=== PATIENT | male | born 1945 | race Caucasian/White ===

== ENCOUNTER 2019-12-06 09:02 | Inpatient (IN) | payer OTHER ==
[~2019-12-06] VITALS: Ht 157.5 cm; Wt 61.2 kg
--- NOTE | 2019-12-06 09:29 | NUR ---
senior information security architect at bedside wanding the pt.
[2019-12-06 09:31] LABS: BASOPHILS % (AUTO) 1.1 % (0.0-2.0); EOSINOPHILS # (AUTO) 0.1 K/uL (0.0-0.7); EOSINOPHILS % (AUTO) 2.1 % (0.0-7.0); HEMATOCRIT 42.6 % (36.7-47.1); HEMOGLOBIN 14.4 g/dL (12.5-16.3); LYMPHOCYTES # (AUTO) 0.9 K/uL (20.0-40.0); LYMPHOCYTES % (AUTO) 22.4 % (20.5-51.5); MEAN CORPUSCULAR HEMOGLOBIN 35.1 uug (23.8-33.4); MEAN CORPUSCULAR HGB CONC 34 g/dL (32.5-36.3); MEAN CORPUSCULAR VOLUME 104.1 fL (73.0-96.2); MONOCYTES # (AUTO) 0.5 K/uL (2.0-10.0); MONOCYTES % (AUTO) 14.3 % (0.0-11.0); NEUTROPHILS # (AUTO) 2.3 K/uL (1.8-8.9); NEUTROPHILS % (AUTO) 60.1 % (38.5-71.5); PLATELET COUNT (AUTO) 174 K/uL (152-348); RED BLOOD CELL COUNT(AUTO) 4.09 MIL/uL (4.06-5.63); WHITE BLOOD COUNT (AUTO) 3.9 K/uL (3.6-10.2)
[2019-12-06 09:37] LABS: CARBON DIOXIDE 27 mmol/L (21-32); CHLORIDE 112 mmol/L (98-107); CREATININE 0.8 mg/dL (0.6-1.3); GLUCOSE 78 mg/dL (74-106); POTASSIUM 3.8 mmol/L (3.5-5.1); UREA NITROGEN, BLOOD 5 mg/dL (7-18)
[2019-12-06 09:43] LABS: ALANINE AMINOTRANSFERASE 40 U/L (16-63); ALKALINE PHOSPHATASE 55 U/L (50-136); ASPARTATE AMINOTRANSFERASE 80 U/L (15-37); BILIRUBIN,DIRECT < 0.1 mg/dL (0.0-0.2); BILIRUBIN,TOTAL 0.4 mg/dL (0.2-1.0); TOTAL PROTEIN, SERUM 6.7 g/dL (6.4-8.2)
[2019-12-06 09:44] LABS: ACETAMINOPHEN < 2.0 ug/mL (10-30)
[2019-12-06 09:49] LABS: ETHANOL 90 MG/DL (0-0)
--- NOTE | 2019-12-06 10:34 | NUR ---
TRANSFERED PT TO MHU IN STABLE CONDITION.
[2019-12-06 11:04] VITALS: BP 168/92
[2019-12-06] MEDS ORDERED: MAGNESIUM HYDROXIDE 30 ML LIQUID UDC PO PRN (12:00)
[2019-12-06] MEDS ORDERED: BLOOD SUGAR DIAGNOSTIC 1 EACH STRIP VI ONE (12:00)
[2019-12-06] MEDS ORDERED: CLONAZEPAM 0.5 MG TABLET PO PRN (12:00)
[2019-12-06] MEDS ORDERED: MAG HYDROX/AL HYDROX/SIMETH 30 ML LIQUID UDC PO PRN (12:00)
[2019-12-06] MEDS ORDERED: ACETAMINOPHEN 325 MG TABLET PO PRN (12:00)
[2019-12-06 15:20] VITALS: BP 158/87
--- NOTE | 2019-12-06 16:53 | NUR ---
Admission Note: Patient admitted on a 5150 hold for GD to MHU Room 145B from the ER accompanied by RN amy marte. Patient belongings inventoried and placed in contraband locker. Valuables inventoried and placed in unit safe. Patient given patient's rights booklet upon admission. Patient given 5150 advisement upon admission and educated about 5150 hold. Patient skin assessment done by RN, skin intact. Upon face to face evaluation, patient is uncooperative with admission process and refusing to participate in nursing assessment. Patient is angry, agitated, and irritable. Patient is preoccupied with bilateral lower extremity pain, due to reports of sciatica. Patient refusing to disclose information about his psychiatric or medical history. Patient admitted with BAL 0.09 on admission. Refusing to participate with alcohol or substance abuse screening questionnaire. Patient escorted to his assigned room and oriented to his room, surroundings, and safety. Educated about impulse control and communicating needs to staff.
[2019-12-06] MEDS ORDERED: GABAPENTIN 300 MG CAPSULE PO SCH (17:30)
--- NOTE | 2019-12-06 18:44 | NUR ---
Patient refusing PO psychotropic medication ordered by psychiatrist. Patient educated about importance of education about medication adherence, benefits of taking medication, but teaching is ineffective at this time. Patient is guarded, withdrawn, and isolative to his assigned bed.
[2019-12-06 20:00] VITALS: BP 154/76
[2019-12-06] MEDS: LORAZEPAM 1 MG TABLET PO PRN (20:24)
--- NOTE | 2019-12-06 22:00 | NUR ---
received to care, lying in bed, pleasant, but guarded, upon approach. PRN ativan was given at 2023, for stated anxiety, and "nervousness". as of 2199, he appears to be asleep. no distress noted. will continue to monitor closely.
--- NOTE | 2019-12-07 05:15 | NUR ---
slept 8 hours. continues to sleep. no distress noted.
[2019-12-07 08:00] VITALS: BP 108/56
[2019-12-07 09:08] LABS: CREATININE 0.6 mg/dL (0.6-1.3); POTASSIUM 3.5 mmol/L (3.5-5.1); TOTAL PROTEIN, SERUM 6.4 g/dL (6.4-8.2)
[2019-12-07 09:10] LABS: ETHANOL < 3 MG/DL (0-0)
[2019-12-07] MEDS: FOLIC ACID 1 MG TABLET PO SCH (09:45)
[2019-12-07] MEDS: THIAMINE HCL 100 MG TABLET PO SCH (09:46)
[2019-12-07] MEDS: MULTIVITAMINS,THERAPEUTIC TABLET PO SCH (09:46)
[2019-12-07] MEDS: CYCLOBENZAPRINE HCL 10 MG TABLET PO PRN (09:46)
[2019-12-07] MEDS: GABAPENTIN 100 MG CAPSULE PO SCH ×3 (09:57→17:19)
--- NOTE | 2019-12-07 12:57 | NUR ---
Social Work Note: clearing tub worker contacted patient's Independent Living and spoke to the automobile sales representative Steve Castro who stated that patient is not accepted back and that he already has another reside who took his bed. This check writer salesperson informed that he would have to have a placement for patient and should have gave patient an eviction notice. This check writer salesperson educated Steve about the [address]. Per Steve, he stated that another independent living would accept patient. Steve, stated to contat Anne ([phone]) to arrange the placement for patient. This check writer salesperson contacted Anne ([phone]) and per Anne she stated that patient is accepted upon discharge.
[2019-12-07] MEDS: LORAZEPAM 1 MG TABLET PO PRN (13:07)
--- NOTE | 2019-12-07 14:02 | NUR ---
Social Work Family Contact: Patient does not have any supportive family members or any friends.
--- NOTE | 2019-12-07 14:02 | NUR ---
Social Work Initial Discharge Plan Note: Patient currently resides at an Independent Living [address] [place] [address] ([phone]). Patient will not be able to return to facility and will be discharged to a new Independent Facility [facility] [address] [facility] [address]. SW will continue to work with patient and MD to ensure a safe and proper discharge plan.
--- NOTE | 2019-12-07 15:54 | NUR ---
Social Work Firearms Report (DOJ): Tax Compliance Representative completed and submitted a DPJ firearms report for 5150 danger to others and grave disability certification. A copy of report has been placed in patient chart.
[2019-12-07 16:00] VITALS: BP 130/73
[2019-12-07 20:00] VITALS: BP 119/60
[2019-12-07] MEDS: TRAMADOL HCL 50 MG TABLET PO PRN (20:22)
--- NOTE | 2019-12-07 21:00 | NUR ---
received to care, lying in bed. denies any sx of alcohol withdrawal. pt remains disheveled, needing a shower, which was offered. he refused, but agreed to possibly take one in the morning.
[2019-12-07] MEDS: TEMAZEPAM 7.5 MG CAPSULE PO PRN (21:59)
--- NOTE | 2019-12-07 22:00 | NUR ---
received to care, lying in bed, pleasant, upon approach. PRN tramadol was given around 1999, for sciatic pain. as of 2199, he appears to be asleep. no distress noted. will continue to monitor closely.
--- NOTE | 2019-12-07 22:59 | NUR ---
PRN restoril was given for insomnia
--- NOTE | 2019-12-07 23:30 | NUR ---
appears to be asleep. no distress noted.
--- NOTE | 2019-12-08 06:00 | NUR ---
slept 7.75 hours. continues to sleep. no distress noted.
[2019-12-08 07:30] VITALS: BP 100/59
[2019-12-08] MEDS: TRAMADOL HCL 50 MG TABLET PO PRN (08:48)
[2019-12-08] MEDS: THIAMINE HCL 100 MG TABLET PO SCH (08:49)
[2019-12-08] MEDS: MULTIVITAMINS,THERAPEUTIC TABLET PO SCH (08:49)
[2019-12-08] MEDS: FOLIC ACID 1 MG TABLET PO SCH (08:49)
[2019-12-08] MEDS: GABAPENTIN 100 MG CAPSULE PO SCH ×3 (08:49→18:16)
--- NOTE | 2019-12-08 09:53 | NUR ---
Social Work Brief Substance Abuse Intervention: Patient was provided with a brief substance abuse intervention and referred to [facility] Substance Abuse Self-helpline ([facility]) ([phone]), [facility] , [facility] , and [facility] .
--- NOTE | 2019-12-08 12:52 | NUR ---
Social Work Discharge Planning: Homicide Detective faxed patient's referral packet including: History and Physical, Consultation, Progress Notes, Medication List and Labs to [facility] for placement attention to Anne [address] [facility] [address].
--- NOTE | 2019-12-08 13:37 | NUR ---
Social Work UR Note: JD faxed patient's clinicals including History and Physical, Consultation, Progress Notes, Medication List and Labs to Alexia oil field caser from [facility] (ph:[phone] ). Authorization # [id number]
[2019-12-08 16:00] VITALS: BP 104/61
[2019-12-08 20:00] VITALS: BP 110/65
--- NOTE | 2019-12-08 20:05 | NUR ---
Received patient in his room, stays most of his time in his room, patient finally decided to take a shower. no behavioral issue.
[2019-12-08] MEDS: TEMAZEPAM 7.5 MG CAPSULE PO PRN (21:11)
[2019-12-09 07:30] VITALS: BP_SYST 116; BP_SYST 141; BP_DIAS 59; BP_DIAS 87
[2019-12-09] MEDS: GABAPENTIN 100 MG CAPSULE PO SCH ×3 (08:30→16:21)
[2019-12-09] MEDS: MULTIVITAMINS,THERAPEUTIC TABLET PO SCH (08:30)
[2019-12-09] MEDS: FOLIC ACID 1 MG TABLET PO SCH (08:30)
[2019-12-09] MEDS: THIAMINE HCL 100 MG TABLET PO SCH (08:30)
--- NOTE | 2019-12-09 09:02 | NUR ---
Received patient awake, alert and oriented in his assigned bed. Bed is in low and locked position. Patient is guarded, withdrawn, and isolative to his assigned room. He has minimal interaction with others, but is cooperative and redirectable. Patient is irritable but is able to be redirected. Patient denies SI/HI, denies AH/VH. Patient is medication adherent, no adverse reaction noted. Patient is able to perform self care and ADL's independently. Able to tolerate food and fluids. Patient denies nausea, vomiting, tremors, or headache. Vital signs are stable. Patient is able to ambulate independently. He is able to communicate his needs to staff. Educated about impulse control and able to verbalize understanding.
[2019-12-09] MEDS: TRAMADOL HCL 50 MG TABLET PO PRN ×3 (12:01→23:34)
[2019-12-09 16:00] VITALS: BP 120/77
--- NOTE | 2019-12-09 17:45 | NUR ---
Patient transferred to room 308. report given to IMELDA Alves. Patient transferred in stable condition. Patient is calm, cooperative, and redirectable.
--- NOTE | 2019-12-09 18:10 | NUR ---
Received patient from MHU via Dori chair, No signs of distress noted. No SOB. Pain medication given as ordered. Ultram 50mg PRN for Pain. All needs attended. Kept clean and comfortable. Kept the bed in lowest position. Will endorse to Oncoming Nurse.
--- NOTE | 2019-12-09 19:35 | NUR ---
PATIENT ALERT ORIENTED, PATIENT COMPLAIN OF BILATERAL FOOT AND LEGS PAIN. PATIENT WILL BE MEDICATED ORDERED. PATIENT CONTINENT, AMBULATED WITHOUT DIFFICULTY. PATIENT HAS NO BEHAVIORAL PROBLEM NOTED AT THIS TIME. PATIENT REQUEST FOR JUICE AND CRACKERS, CALL LIGHT WITHIN REACH. CONT TO MONITOR.
[2019-12-09] MEDS: CYCLOBENZAPRINE HCL 10 MG TABLET PO PRN (20:25)
[2019-12-09 20:51] VITALS: BP 150/73
[2019-12-09] MEDS: TEMAZEPAM 7.5 MG CAPSULE PO PRN (22:05)
[2019-12-10 05:10] VITALS: BP 90/48
--- NOTE | 2019-12-10 05:24 | NUR ---
PATIENT ALERT ORIENTED, NO COMPLAIN OF PAIN AT THIS TIME. PATIENT SLEPT FOR 5.45 MIN. PATIENT CONTINUE ON PAIN MANAGEMENT DUE SCIATICA PAIN. PATIENT HAS NO BEHAVIORAL PROBLEM NOTED, CONT TO MONITOR.
--- NOTE | 2019-12-10 07:45 | NUR ---
Patient is awake, alert and verbally responsive. No signs of distress noted. No SOB. No complain of Pain at this time. No episode Of SI?HI, Patient is calm. Kept the bed in lowest position. Kept comfortable. Will continue to monitor.
[2019-12-10] MEDS: MULTIVITAMINS,THERAPEUTIC TABLET PO SCH (08:05)
[2019-12-10] MEDS: THIAMINE HCL 100 MG TABLET PO SCH (08:05)
[2019-12-10] MEDS: FOLIC ACID 1 MG TABLET PO SCH (08:05)
[2019-12-10] MEDS: CYCLOBENZAPRINE HCL 10 MG TABLET PO PRN (08:05)
[2019-12-10] MEDS: GABAPENTIN 100 MG CAPSULE PO SCH ×2 (08:05→13:25)
[2019-12-10] MEDS: TRAMADOL HCL 50 MG TABLET PO PRN (08:06)
--- NOTE | 2019-12-10 08:09 | NUR ---
Social Work Discharge Note: Patient will be discharged to [facility] [address] [place] [address] ([phone]). The patient will be provided transportation via Taxi ([phone]) at 12:30pm and will be given a taxi voucher. Anne ([phone]) at the facility is aware and agreeable of patients arrival. Patient is aware and agreeable with discharge plans. Patient presents with normal mood and euthymic affect. Patient denies suicidal or homicidal ideation. Patient will be following up at the facility with Geology Professor Dr. Ferrell and Psychiatrist Dr. Cisneros. Patient was provided with outpatient mental health resources to [facility] Crisis Line , and the [place] [facility] . Patient was provided with a brief substance abuse intervention and provided with the [facility] Substance Abuse Self-helpline ([facility]) ([phone]), [facility] [address] [place] [address] ([phone]), [facility] [address] [place] [address]. [place] [address] ([phone]). Patient has no supportive contacts to notify.
[2019-12-10] MEDS ORDERED: LIDOCAINE 5% PATCH TD SCH (09:15)
[2019-12-10 12:00] VITALS: BP 98/60
--- NOTE | 2019-12-10 14:27 | NUR ---
Patient in bed, awake and verbally responsive, No signs of distress noted, No SOB. Pain medication given as ordered. Patient with order to be discharge to Independent living today, discharge Instructions given to patient and verbalized Understanding. All belongings signed and sent with patient, removed Wrist band. patient was given a taxi voucher and was picked up in stable condition.
== END 2019-12-10 14:30 | DRG 885 ==
LOC: ER 09:02 → GPS 10:20 → GPSOV3 12-09 17:50
PROVIDERS: ADMIT Psychiatry & Neurology Psychiatry; ATTEND Internal Medicine
DX: F39 Unspecified mood [affective] disorder (principal); F10.229 Alcohol dependence with intoxication, unspecified; F10.239 Alcohol dependence with withdrawal, unspecified; Z91.14 Patient's other noncompliance with medication regimen; Y90.0 Blood alcohol level of less than 20 mg/100 ml; G89.29 Other chronic pain; Z79.899 Other long term (current) drug therapy
CPT/HCPCS: 36415; 71045; 85025; 93005; A4663; G0480; G0480-TC

== ENCOUNTER 2020-03-27 22:30 | Inpatient (IN) | payer OTHER, MEDICAID ==
[~2020-03-27] VITALS: Ht 172.7 cm; Wt 68.0 kg
[~2020-03-27 22:30] MED LIST: CYCL5TAB PO; D ME PO; DIME25TA2 PO; METH-406 PO; TRAM50TA2 PO
--- NOTE | 2020-03-27 22:30 | NUR ---
Patient BIB RA 100. Alert, oriented to self and able to respond to questions selectively. However, pt with episodes of noncoherent responses and noted with episodes of talking to self. Pt also c/o lower back, hip, groin and lower leg. Denies episodes of fall or any injury to the areas of pain. Breathing is even and unlabored. VS taken and within normal parameters. Denies chest pain or shortness of breath. No contrabands noted. Denies suicidal or homicidal ideation. Cooperative and calm at this time. Side rails up x 2. Bed locked in position. Monitored closely at this time.
[2020-03-27 22:57] LABS: BASOPHILS % (AUTO) 0.9 % (0.0-2.0); EOSINOPHILS # (AUTO) 0.2 K/uL (0.0-0.7); EOSINOPHILS % (AUTO) 4.2 % (0.0-7.0); HEMATOCRIT 37.7 % (36.7-47.1); HEMOGLOBIN 12.9 g/dL (12.5-16.3); LYMPHOCYTES # (AUTO) 1.3 K/uL (20.0-40.0); LYMPHOCYTES % (AUTO) 30.4 % (20.5-51.5); MEAN CORPUSCULAR HEMOGLOBIN 34.4 uug (23.8-33.4); MEAN CORPUSCULAR HGB CONC 34 g/dL (32.5-36.3); MEAN CORPUSCULAR VOLUME 100.7 fL (73.0-96.2); MONOCYTES # (AUTO) 0.6 K/uL (2.0-10.0); MONOCYTES % (AUTO) 15.4 % (0.0-11.0); NEUTROPHILS # (AUTO) 2.1 K/uL (1.8-8.9); NEUTROPHILS % (AUTO) 49.1 % (38.5-71.5); PLATELET COUNT (AUTO) 182 K/uL (152-348); RED BLOOD CELL COUNT(AUTO) 3.74 MIL/uL (4.06-5.63); WHITE BLOOD COUNT (AUTO) 4.2 K/uL (3.6-10.2)
[2020-03-27 23:05] LABS: ACETAMINOPHEN < 2.0 ug/mL (10-30); ALANINE AMINOTRANSFERASE 52 U/L (16-63); ALKALINE PHOSPHATASE 65 U/L (50-136); ASPARTATE AMINOTRANSFERASE 64 U/L (15-37); BILIRUBIN,DIRECT 0.2 mg/dL (0.0-0.2); BILIRUBIN,TOTAL 0.5 mg/dL (0.2-1.0); CARBON DIOXIDE 28 mmol/L (21-32); CHLORIDE 108 mmol/L (98-107); CREATININE 0.8 mg/dL (0.6-1.3); GLUCOSE 89 mg/dL (74-106); POTASSIUM 3.2 mmol/L (3.5-5.1); TOTAL PROTEIN, SERUM 6.7 g/dL (6.4-8.2)
[2020-03-27 23:14] LABS: UREA NITROGEN, BLOOD 9 mg/dL (7-18)
--- NOTE | 2020-03-27 23:25 | NUR ---
Dr. Quesada at [facility] for MSE. Addendum: 03/27/20 at 2342 by GRIS 2234* Correct time.
[2020-03-27 23:26] LABS: ETHANOL 74 MG/DL (0-0)
--- NOTE | 2020-03-27 23:30 | NUR ---
Dr. Quesada medically cleared patient for Psych admission for being gravely disabled. Samantha SEGURA notified for psychiatric evaluation.
--- NOTE | 2020-03-28 | NUR ---
Samantha SEGURA PET at bedside.
[2020-03-28 00:09] LABS: BASOPHILS % (MANUAL) 1 % (0-2); EOSINOPHILS % (MANUAL) 5 % (0-8); LYMPHOCYTES % (MANUAL) 30 % (20-40); MONOCYTES % (MANUAL) 14 % (2-10); NEUTROPHILS % (MANUAL) 50 % (42-75)
--- NOTE | 2020-03-28 01:00 | NUR ---
Pt has been placed on a 5150 hold for being gravely disabled (as of 03/28/20 0030). Samantha SEGURA completed all paperwork and delegated faxing to Evie. Alexia ([place] development representative) provided Fax # . Faxed paperwork and per Alexia patient is okay to be admitted in our GPS unit. Authorization will have to be given in the morning.
--- NOTE | 2020-03-28 01:09 | NUR ---
Nursing finishing room supervisor and 3rd floor charge nurse aware of GPS OV admission, pending Covid Test Result. Pt will be going to Room 318, pending sitter.
--- NOTE | 2020-03-28 01:43 | NUR ---
Pt remains in the department at this time. Monitored closely. Fall/Safety precautions in place. Side rails up x 2. Bed locked in position. Will continue to monitor.
--- NOTE | 2020-03-28 04:48 | NUR ---
Pt remains in bed, sleeping. Refused to get vital signs taken at this time and wants to continue sleeping. No signs of distress or non verbal signs of pain noted. Allowed patient to rest. Still kept on close monitoring. Fall and safety precautions remain in place.
--- NOTE | 2020-03-28 06:27 | NUR ---
Pt still asleep. VS taken and recorded, all within normal limits. No non verbal signs of pain or discomfort. No episodes of inappropriate behavior or any safety concerns throughout the night. Pt was able to sleep for 8 hours since 10 pm last night. Remains on 5150 hold for being gravely disabled. Fall and safety precautions maintained. Kept on close monitoring. Will transfer to floor once sitter is available.
--- NOTE | 2020-03-28 07:04 | NUR ---
Report given to Salomon SEGURA.
--- NOTE | 2020-03-28 07:55 | NUR ---
Attempted to give report. Nurse not available at this time
--- NOTE | 2020-03-28 08:18 | NUR ---
Nurse still not available for report at this time
--- NOTE | 2020-03-28 09:10 | NUR ---
RECEIVED PATIENT FOR ADMISSION FROM EMERGENCY ROOM 74 YEARS OLD MALE WITH DX OF GRAVELY DISABLE PLACED INTO BED FIXED AND MADE COMFORTABLE PATIENT IS ALERT VERBALLY RESPONDED TO QUESTIONS ASKED STATED THAT HE IS HOMELESS AND HAPPY TO BE HERE HAS MULTIPLE SKIN SCABS PHOTOS TAKEN AND DOCUMENTED PATIENT IS UNKEMPT DR VENTURA IS HERE AND WILL RECONCILE HIS MEDICATIONS NO RESPIRATORY DISTRESS NO FEVER OR SHORTNESS OF BREATH PATIENT ORIENTED ON ROOM AND FACILITY PROTOCOL MADE COMFORTABLE AND WILL CONTINUE TO OBSERVE.
[2020-03-28 09:30] VITALS: BP 103/48
[2020-03-28] MEDS ORDERED: MAGNESIUM HYDROXIDE 30 ML LIQUID UDC PO PRN (11:00)
[2020-03-28] MEDS ORDERED: LORAZEPAM 1 MG TABLET PO PRN (11:00)
[2020-03-28] MEDS ORDERED: ACETAMINOPHEN 325 MG TABLET PO PRN (11:00)
[2020-03-28] MEDS ORDERED: MAG HYDROX/AL HYDROX/SIMETH 30 ML LIQUID UDC PO PRN (11:00)
--- NOTE | 2020-03-28 14:00 | NUR ---
DR MAIA JASMINE TIMED PATIENT WITH NEW ORDERS AND NOTED
[2020-03-28 15:28] VITALS: BP 117/57
[2020-03-28] MEDS: GABAPENTIN 100 MG CAPSULE PO SCH (16:50)
[2020-03-28] MEDS ORDERED: SERTRALINE HCL 50 MG TABLET PO SCH (17:00)
--- NOTE | 2020-03-28 17:31 | NUR ---
PATIENT IS RESTING IN BED EATING DINNER HE IS COMPLIANT WITH MEDICATIONS AND CARE REMAIN ON PATIENT UNDER INVESTIGATION ISOLATION NO RESPIRATORY DISTRESS AND IS AFEBRILE AT THIS TIME
[2020-03-28 20:01] VITALS: BP 123/72
[2020-03-28] MEDS: TEMAZEPAM 7.5 MG CAPSULE PO PRN (21:18)
--- NOTE | 2020-03-28 21:21 | NUR ---
patient received in bed watching tv. AAOX3. no s/s of acute distress. v/s stable. on RA. c/o of generalized pain and insomnia. temazepam and tylenol administered. tolerated well. 1:1 sitter for GPS legal status. compliant with medications and cooperative with care. safety measures in place. will continue to monitor and assess.
[2020-03-29 04:00] VITALS: BP 102/66
--- NOTE | 2020-03-29 07:02 | NUR ---
patient c/o of pain and attempted to administer tylenol. patient refused. wasted.
[2020-03-29 07:05] LABS: BILIRUBIN,TOTAL 0.6 mg/dL (0.2-1.0); CREATININE 0.7 mg/dL (0.6-1.3); POTASSIUM 3.4 mmol/L (3.5-5.1); TOTAL PROTEIN, SERUM 5.9 g/dL (6.4-8.2)
[2020-03-29] MEDS ORDERED: POTASSIUM CHLORIDE 20 MEQ TAB.PRT.SR PO ONE (08:00)
[2020-03-29 08:17] VITALS: BP 117/67
[2020-03-29] MEDS: GABAPENTIN 100 MG CAPSULE PO SCH ×3 (09:04→17:39)
--- NOTE | 2020-03-29 12:05 | NUR ---
JD UR Note: JD spoke with Ronald from [employer] [facility] ( ; fax: [phone])) and faxed patient's face sheet, history and physical, medication and labs for review. Left voicemail for Ronald to call this appeals writer back for authorization number. Waiting for authorization number.
[2020-03-29 13:23] VITALS: BP 121/71
--- NOTE | 2020-03-29 15:40 | NUR ---
JD UR Note: Authorization #[id number] JD spoke with Ronald from [facility] ( ; fax: [phone]) who stated that the patient will need to be discharged as soon as possible because they believe "the patient does not meet criteria for psychiatric admission". This technical writer and editor stated that this is the first day of the patient's admission, however Ronald stated that "should we have reviewed the claim earlier, we would have stopped the patient admission and this would've not happened". This technical writer and editor will work on patient's discharge plans for tomorrow and informed the psychiatrist.
--- NOTE | 2020-03-29 15:42 | NUR ---
JD UR Note: Authorization #[id number] [facility] who stated that they are requesting an MD to MD with Dr. Goodson and Dr. Fox ([phone]). Dr. Goodson is informed and conducted the review with Dr. Fox and stated that they are requesting the patient to be discharged tomorrow.
--- NOTE | 2020-03-29 15:44 | NUR ---
JD Initial Discharge Note: Patient is currently homeless. Patient is accepted to an Independent Living [address] [place] [address], [employer] ( ; fax [phone]). JD will continue to work with patient and MD to ensure a safe and proper discharge plan.
--- NOTE | 2020-03-29 15:49 | NUR ---
Social Work Firearms Report (DOJ): Retail Selling Floor Leader completed and submitted a DPJ firearms report for 5150 grave disability certification. A copy of report has been placed in patient chart.
--- NOTE | 2020-03-29 15:50 | NUR ---
JD Coordination of Care: JD spoke with Yari from [facility] [address] [place] [address], ( ; fax [phone]) who stated that patient is accepted to their facility upon discharge. SW faxed patient's referral packet.
[2020-03-29] MEDS ORDERED: SERTRALINE HCL 50 MG TABLET PO SCH (17:00)
--- NOTE | 2020-03-29 19:18 | NUR ---
PATIENT CALM AND COMFORTABLE THROUGH OUT SHIFT WITH NO SIGNS OF DISTRESS; PATIENT MEDICATION COMPLIANT;REPORT GIVEN TO ONCOMING NURSE.
--- NOTE | 2020-03-29 20:00 | NUR ---
Received patient awake and alert. Patient shows no signs or symptoms of distress at this time. Vital signs stable. Denies having any thoughts of hurting himself at this time. Bed set to lowest position. Call light within reach. Side rails x2 are up. Will continue to monitor patient.
[2020-03-29 20:12] VITALS: BP 126/75
[2020-03-29 20:18] VITALS: BP 113/57
[2020-03-29] MEDS: TEMAZEPAM 7.5 MG CAPSULE PO PRN (21:05)
[2020-03-30 04:12] VITALS: BP 122/69
[2020-03-30 06:43] LABS: CREATININE 0.7 mg/dL (0.6-1.3); POTASSIUM 3.9 mmol/L (3.5-5.1)
--- NOTE | 2020-03-30 06:48 | NUR ---
Patient shows no signs or symptoms of distress at this time. Vital signs stable. Will endorse patient to day shift nurse in stable condition.
[2020-03-30 08:00] VITALS: BP 122/71
--- NOTE | 2020-03-30 08:00 | NUR ---
Received pt in bed AOx2, on RA with no SOB or distress noted at this time. Pt stated denies any suicidal ideation but has episodes of flight of ideas but able to redirect. able to ambulate to bathroom with slight pain 2/10 on right leg. Bed locked in lowest position with siderails 2x up. No other complaints at this time. Will monitor
[2020-03-30] MEDS: GABAPENTIN 100 MG CAPSULE PO SCH ×2 (08:55→12:27)
[2020-03-30 11:30] VITALS: BP 105/78
--- NOTE | 2020-03-30 11:40 | NUR ---
Discharge Note: Patient will be discharged today to [facility] [address] [place] [address], [facility] is aware and confirmed patient is accepted and can arrive today ; fax [phone]). Patient will be provided with Taxi transportation today at 12pm and is given a taxi voucher. Patient presents alert and oriented times 4. Patient is aware and agreeable with discharge plans. Patient denies suicidal or homicidal ideation. Patient presents with euthymic mood and congruent affect. Patient will be following up with Insulation Mechanic Dr. Sheets and Psychiatrist Dr. Cisneros at [facility]. Patient signed the homeless waiver upon discharge and a copy was placed in the chart. Homeless resources were provided and include 211 information line for shelters and homeless resources. A copy of all resources given to patient was also placed in the chart.
--- NOTE | 2020-03-30 13:40 | NUR ---
Attempted to take pictures of elbow and knees scabs for discharge, patient refused.
--- NOTE | 2020-03-30 13:44 | NUR ---
Pt left unit via wheelchair accompanied by Angelina UMANZOR and will be picked up by taxi. DC forms and instructions signed and given, verbalized understanding. Homeless waiver signed, belongings list signed and all accounted for. DC prescription given to patient. ID band removed. No distress or complaints at this time.
--- NOTE | 2020-03-30 15:44 | NUR ---
JD UR Note: Authorization #[id number] JD left a voicemail for Ronald from [facility] ( ; fax: [phone]) regarding patient's discharge today and faxed it to Ronald for review. Ronald called this racebook writer back and confirmed he received the information. Addendum: 03/31/20 at 0807 by BECKIE WATSON Ronald stated that he sent all the clinicals and is waiting for Wang to have yet review the clinicals and confirm we are authorized for this hospitalization. He stated he will call me back when he receives an answer.
== END 2020-03-30 13:30 | disposition home or self-care (01) | DRG 885 ==
LOC: ER 22:41 → GPSOV3 03-28 08:51
PROVIDERS: ADMIT Psychiatry & Neurology Psychosomatic Medicine; ATTEND Family Medicine
DX: F39 Unspecified mood [affective] disorder (principal); E44.1 Mild protein-calorie malnutrition; E87.6 Hypokalemia; G89.29 Other chronic pain; G62.9 Polyneuropathy, unspecified; G47.00 Insomnia, unspecified; Z73.6 Limitation of activities due to disability; E88.09 Other disorders of plasma-protein metabolism, not elsewhere classified; M54.30 Sciatica, unspecified side; Z68.22 Body mass index [BMI] 22.0-22.9, adult; Z72.89 Other problems related to lifestyle
CPT/HCPCS: 36415; 70030-TC; 71045; 80329; 85025; 93005; A4663; G0480; G0480-TC; U0003-CS